=== PATIENT | male | born 1950 | race African-American/Black ===

== ENCOUNTER 2018-03-16 15:05 | Observation (INO) | END 2018-03-18 14:41 | disposition home or self-care (01) ==

== ENCOUNTER 2019-02-12 09:09 | Emergency (ER) | payer OTHER ==
[~2019-02-12] VITALS: Ht 170.2 cm; Wt 61.8 kg
[~2019-02-12 09:09] MED LIST: ACET325T33 PO; ASPI-903 PO; ENAL20TA PO; NICO-546 TRANSDERM; ONDA4TAB14 PO; PANT40TA3 PO; PRAV10TA43 PO; VERA120T PO; VERA80TA PO
[2019-02-12 09:11] VITALS: Ht 170.2 cm; Wt 61.8 kg
[2019-02-12] MEDS ORDERED: ONDANSETRON 4 MG INJ IV STA (09:40)
[2019-02-12] MEDS ORDERED: SOD CHLORIDE 0.9% 1,000 ML IV STA (09:40)
[2019-02-12] MEDS ORDERED: ONDANSETRON (ODT) 4 MG TAB ODT STA (09:53)
[2019-02-12] MEDS ORDERED: ACETAMINOPHEN 325 MG TAB PO ONE (10:30)
[2019-02-12 11:25] VITALS: BP 141/73; PULSE 68; RESP 16
== END 2019-02-12 11:30 | disposition home or self-care (01) ==
LOC: E/R 09:09
DX: R11.2 Nausea with vomiting, unspecified (principal); R19.7 Diarrhea, unspecified; I10 Essential (primary) hypertension; F17.210 Nicotine dependence, cigarettes, uncomplicated; Z79.82 Long term (current) use of aspirin
CPT/HCPCS: 74176; 80048; 80053; 83690; 85025; 99284; J7030